=== PATIENT | female | born 1965 | race Two or more races ===

== ENCOUNTER → 2017-02-26 | Outpatient (CLI) | payer BC, MEDICARE ==
--- NOTE | 2017-02-26 15:45 | RADRPT ---
PROCEDURE: XR pelvis and bilateral hips. CLINICAL INDICATION: PAIN TECHNIQUE: AP pelvis and frog lateral views of the bilateral hips were performed. COMPARISON: None. FINDINGS: There is normal mineralization and alignment. No acute fracture or osseous lesion is identified. There are mild to moderate degenerative changes of bilateral hip joints including joint space narrow ing and small osteophytes. The soft tissues are unremarkable. IMPRESSION: Mild to moderate degenerative changes of bilateral hip joints. RPTAT: EE Physician Mariana Date Time Electronically viewed and signed by Physician Mariana on 02/26/2017 15:44 RA/
--- NOTE | 2017-04-15 08:10 | HKNOTE ---
DATE OF SERVICE: 02/26/2017 MAIN COMPLAINT: Pain in the lower back and right hip. HISTORY OF MAIN COMPLAINT: The patient is a 51-year-old female who complains of pain in the lower back and right buttock. The pain radiates down her right leg. She also gets mild pain in her right groin. She has had these symptoms for about 10 years. She has had physical therapy and acupuncture treatments. She had 1 lumbar epidural injection given to her by Dr. Lneny Bloom. She has seen 2 orthopedic surgeons. One told her that she has "hip impingement" (Dr. Mitchell Guerrero), the other advised her that she will need to have a right hip replacement (Dr. Davion Johnson). She also saw Dr. Mitchell Pagan who recommended a lumbar epidural cortisone injection. Dr. Guerrero, gave her a cortisone injection into her right hip under anesthesia and this did not give her much relief. PRESENT COMPLAINTS: Her main pain is in the lower back and radiates to her right buttock and down her leg. She gets tingling in the right leg. The tingling is in the same distribution as the pain. The pain has become progressively more severe over the past year. The pain varies between moderate to "really bad." The pain is aggravated by walking, weightbearing, and stair climbing. She does get rest pain and night pain. She is taking the meloxicam, baclofen, and Lyrica, which does not give her sufficient relief. She has had multiple cortisone injections. She gets pain every day. She does not use a walking aid. She does not limp. Her leg lengths feel equal. She does not have a shoe lift. PAST ORTHOPEDIC HISTORY: PREVIOUS ORTHOPEDIC OPERATIONS: None. PRIOR CORTISONE INJECTIONS: As noted above. ALCOHOL INTAKE: None. OTHER JOINT PROBLEMS: None. BLOOD TESTS FOR ARTHRITIS: None. PRIOR HISTORY OF HIPS AND KNEES: None. WORK STATUS: Unemployed. PAST MEDICAL HISTORY: None. PAST SURGICAL HISTORY: 1. Total hysterectomy. 2. Arthroscopic surgery of the right hip by Dr. Jose D Acosta 3 years ago. DRUG ALLERGIES: None. MEDICATIONS: 1. Meloxicam. 2. Baclofen. 3. Lyrica. FAMILY HISTORY: Father age 82 and has diabetes. Mother at 70 from tuberculosis and diabetes. SYSTEMS REVIEW: Prone to heartburn. Tingling sensations in the back of her leg. Otherwise, entirely negative. HABITS: The patient does not smoke and drinks an occasional cocktail. PHYSICAL EXAMINATION: GENERAL: The patient is a remarkably fit-looking 51-year-old female. She walks without a walking aid. Her gait is normal. BACK: The lumbar spine has a full range of motion. Pain in her right buttock and leg are reproduced by lateral flexion to the right and rotation to the left. NEUROLOGIC: Deep tendon reflexes in the lower extremities are present and symmetrical. Straight leg raising is negative bilaterally at 80 degrees. HIPS: On examination of the right hip, a full range of motion with groin pain on forced external rotation. Remarkably, she also gets right buttock pain at the same time. No tenderness anywhere around the right hip. On examination of the left hip, a full range of motion without pain. KNEES: Examination of both knees are clinically normal. IMAGING: Plain x-rays of her pelvis and hips, brought with her from the [facility] [place] and obtained in November 2016, showed severe narrowing of the right hip joint space. No subchondral sclerosis or interosseous cysts. No avascular necrosis. An MRI scan of the right hip obtained on reported by Dr. Jair Castanon is showing, "A mixed type of femoral acetabular impingement. Moderate chondral loss affecting the weightbearing portion of the acetabulum and to a lessor extent the femoral head. An MRI scan of the lumbar spine obtained on 05/09/[address] Heber Arambula as showing, "At L4-L5, left paracentral and proximal foraminal disc herniation, partially compromising the lateral recess and displacing the left descending L5 nerve root. The right foramen is patent. No nerve root compromise. Remainder of examination is unremarkable. FINAL DIAGNOSES: 1. Severe right-sided sciatica with relatively benign findings on MRI of the lumbar spine. 2. Severe symptomatic degenerative osteoarthritis of the right hip. MANAGEMENT: The patient is advised that without a doubt she will definitely need to have a right hip replacement at some time in the near future. We do need to have her see a youth development specialist to evaluate the current status of the right-sided sciatica. The patient is being referred to Dr. Layton Bedolla for a spine consultation. She was given a copy of my booklet on hip arthritis and hip replacement surgery. She was referred to my web site, [email or web address]. The patient will call if and when she wishes to consider further treatment. She was offered to have a further injection of cortisone into her hip joint is a diagnostic test, as well as for treatment. Although, the hip was injected under ultrasound, it is possible that the injection was not placed into the hip joint. She declines further injections at this time. Dictated By: Hood Harmon MD /tessa/antoni /Document#: [id number]
== END | disposition home or self-care (01) ==
LOC: HKI 14:15
DX: M54.41 Lumbago with sciatica, right side (principal); M16.11 Unilateral primary osteoarthritis, right hip; Z90.710 Acquired absence of both cervix and uterus; Z83.3 Family history of diabetes mellitus; Z83.1 Family history of other infectious and parasitic diseases
CPT/HCPCS: 73502; G0463